=== PATIENT | female | born 1955 | race Caucasian/White ===

== ENCOUNTER → 2020-08-23 11:22 | Outpatient (CLI) | payer OTHER, MEDICAID, SELFPAY ==
[2020-08-23 13:47] LABS: COVID19 -Nasal RAPID Negative (Negative)
== END ==
PROVIDERS: PCP Nurse Practitioner; Visit Provider Student in an Organized Health Care Education/Training Program
DX: Z01.812 Encounter for preprocedural laboratory examination (principal); Z20.822 Contact with and (suspected) exposure to COVID-19
CPT/HCPCS: 87635; C9803

== ENCOUNTER 2020-08-25 14:39 | Observation (INO) | payer OTHER, MEDICAID, SELFPAY ==
[2020-07-27 12:42] VITALS: BMI 36.6
[2020-08-24] VITALS (18 sets, daily range): BP systolic 94–142; BP diastolic 48–86; PULSE 56–87; RESP 12–22; TEMP 36.3–37.2; O2SAT 94–99; BMI 36.6
--- NOTE | 2020-08-24 06:30 | DI.RAD.S_ITS ---
PROCEDURE: XR HIP W PEL IF DONE RT 2V INDICATIONS: total hip TECHNIQUE: AP pelvis and lateral view of the right hip acquired. COMPARISON: None. FINDINGS: Bones: Patient is status post right hip arthroplasty, with hardware components in expected positions. The hip joint appears congruent. The visualized bony structures appear intact. Soft tissues: Overlying postoperative changes are noted. No suspicious soft tissue densities. IMPRESSION: Expected immediate postoperative appearance, status post total right hip arthroplasty. Dictated by: Roney Dai M.D. on 08/24/2020 at 16:18 Approved by: Roney Dai M.D. on 08/24/2020 at 16:19
[2020-08-24] MEDS: ACETAMINOPHEN 325 MG TABLET 975 MG PO (09:26)
[2020-08-24] MEDS: LACTATED RINGERS 1,000 ML 42 ML IV ×2 (09:27→12:16)
[2020-08-24] MEDS: VANCOMYCIN 1,000 MG/200 ML PIGGYBACK 200 MG IV (09:36)
--- NOTE | 2020-08-24 10:17 | PM.PREOP ---
Pre-operative Note COVID-19 COVID-19 status: Negative Interval Note History & Physical reviewed/Exam performed by Physician: Yes Changes to H&P: No
--- NOTE | 2020-08-24 10:17 | PM.OP.1 ---
Operative Date/Time/Diagnoses Date of procedure: 08/24/20 Time of procedure: 10:59 Pre-op diagnosis: right hip OA Post-op diagnosis: same Procedure & Clinicians Procedure: Right total hip arthroplasty posterior approach Same procedure as scheduled: Yes Indications: The patient has had progressively worsening right hip pain with radiographic changes consistent with arthritis. Non-operative management has failed and the patient has requested total hip replacement. The risks, benefits and alternatives to surgery were discussed with the patient prior to proceeding. Risks discussed included, but were not limited to, failure to relieve pain, leg length discrepancy, dislocation, stiffness, infection, nerve damage, deep venous thrombosis, pulmonary embolism, stroke, coma, heart attack, permanent paralysis and , as well as the potential need for eventual revision of the prosthetic. Surgeon: Cara Biggs Filling Station Laborer: Kiran Perez Anesthesia Type: General and Spinal Operative Notes Findings: Severe right hip osteoarthritis, adequate stability, adequate bone Closure Type: primary Specimen(s): none sent Prosthetic devices, grafts, tissues, transplants, or devices: [employer] anthology standard offset size 7, 56 mm R3 cup, neutral poly liner, one 6.5 mm screw, +0 Oxinium head Applied: drain(s) Estimated Blood Loss (mL): 250 Blood products transfused: none Procedure in detail: The patient was seen in the pre-operative area, where the patient identified the right hip as the operative site and this was marked with my initials. The patient received pre-operative antibiotics and was taken to the operating room and placed on the operative table in the left lateral decubitus position after satisfactory anesthesia. A diesel scoop operator out was performed. The right leg was prepared from the ankle to the iliac crest with ChloroPrep in the usual fashion and draped through sterile drapes. The hip was approached through an approximately 20 cm incision centered over the greater trochanter and curving gently posteriorly as it went proximally. This was carried sharply to the fascia olaf, which was divided and retracted with a self retaining retractor. The trochanteric bursa was excised with care being taken to avoid the sciatic nerve, which was identified and protected throughout the case. The short external rotators were incised and the capsulomuscular flap was raised and tagged for later repair. The hip was dislocated, and a femoral neck osteotomy performed approximately 15 mm above the lesser trochanter. Retractors were placed around the femur. The canal was opened with a box cutting osteotome, followed by a T handled reamer and a lateralizing reamer. The chili pepper broach was then used, followed by sequential broaching until there was good stability of the broach in the femur. Retractors were placed to expose the acetabulum. The labrum and central soft tissues were removed. Reaming was performed initially going up in 2 mm increments, then 1 mm increments until good bite was obtained with an odd sized reamer. The cup 1 mm larger than the last reamer was then inserted using the appropriate anteversion guides. It was further stabilized with a single screw. A trial neutral liner was placed. The broach was placed in the canal. A trial head and neck were then placed and the hip relocated and checked for leg length and stability. An intraoperative film confirmed the component position and no evidence of fracture. The patient was stable in the position of sleep, of squatting, and could be put through a range of motion with 45 degrees internal rotation without dislocation. At 90 degrees flexion, internal rotation to 80 ? was possible before dislocation. This was felt to be satisfactory and the appropriate components were opened, and the trials were removed. The acetabular liner was impacted into position. The final stem was then impacted into the prepared femoral canal. A brief Betadine soak was performed while trialing with head options. The hip was meticulously irrigated with normal saline. Finally the femoral head was impacted onto the stem. The acetabulum was cleared of all material and the hip relocated one final time. The capsulomuscular flap was then repaired to the greater trochanter though an awl hole using the tag sutures. The short external rotators were repaired with a nonabsorbable suture. A deep drain was placed and brought out anteriorly. The fascia olaf was closed with Vicryl. The subcutaneous layer was closed with barbed sutures and SteriStrips. A Cristina dressing was applied and the patient was taken to recovery having tolerated the procedure well. Complications: none Post-operative Condition: stable Disposition: Acute Care Plan for aftercare: The patient will be maintained on a standard total hip replacement protocol with weight bearing as tolerated and posterior hip precautions. The patient will receive Aspirin and sequential compression devices for DVT prophylaxis. The patient will be discharged home when safe for the home environment.
--- NOTE | 2020-08-24 10:45 | DI.RAD.S_ITS ---
PROCEDURE: XR PELVIS 1-2V INDICATIONS: INNER OP RT HIP TECHNIQUE: 1 intraoperative view(s) of the pelvis acquired. COMPARISON: [facility], CR, XR HIP W PEL IF DONE RT 2V, 08/24/2020, 13:36. FINDINGS: Bones: Intraoperative imaging obtained during right hip arthroplasty. Soft tissues: Visualized bowel gas pattern is normal. No suspicious soft tissue calcifications. IMPRESSION: Intraoperative imaging obtained during right hip arthroplasty. Dictated by: Abhinav Frost M.D. on 08/24/2020 at 16:26 Approved by: Abhinav Frost M.D. on 08/24/2020 at 16:26
[2020-08-24] MEDS: CEFAZOLIN 1 GM VIAL 2 GM IV ×2 (10:53→19:44)
--- NOTE | 2020-08-24 11:26 | SUR.OPER ---
Left Lateral on padded OR bed. Gel axillary roll. Arms secured on padded arm board with pillow supporting top arm. Padded hip positioner braces x4 - anterior and posterior chest and pelvis. Additional gel pad used anterior pelvis. Gel pad under bottom leg from knee to foot and secured with tape over sheet.
[2020-08-24] MEDS: SODIUM CHLORIDE IRRIG SOLUTION 250 ML, EPINEPHrine 1 MG IRR (11:32)
[2020-08-24] MEDS: TRANEXAMIC ACID 1,000 MG VIAL 1000 MG INJ ×2 (11:33→12:50)
[2020-08-24] MEDS: SODIUM CHLORIDE IRRIG SOLUTION 250 ML, POVIDONE-IODINE SPONGE STICKS 1 APPLIC IRR (11:35)
[2020-08-24] MEDS: BUPIVACAINE LIPOSOME 266 MG/20 ML VIAL INJ (11:35)
[2020-08-24] MEDS: BUPIVACAINE 0.5% W/ EPI (PF) 30 ML VIAL INJ (11:36)
[2020-08-24] MEDS: ALBUTEROL 2.5 MG/3 ML NEB (ADULT) INH ×3 (13:31→23:32)
[2020-08-24] MEDS: ONDANSETRON 4 MG/2 ML INJ IV ×2 (13:52→14:11)
[2020-08-24] MEDS: HYDROMORPHONE 2 MG INJ IV (14:01)
[2020-08-24] MEDS: fentaNYL 100 MCG/2 ML INJ IV (14:18)
[2020-08-24] MEDS: OXYCODONE IR 5 MG TABLET 10 MG PO ×2 (15:42→19:45)
[2020-08-24] MEDS: ACETAMINOPHEN 325 MG TABLET 650 MG PO ×2 (15:43→20:55)
[2020-08-24] MEDS: IBUPROFEN 400 MG TABLET PO ×2 (17:14→20:56)
[2020-08-24] MEDS: HYDROMORPHONE 2 MG TABLET PO ×2 (17:14→20:57)
[2020-08-24] MEDS: LACTATED RINGERS 1,000 ML 125 ML IV (17:21)
[2020-08-24] MEDS: NICOTINE 21 MG PATCH TOP (17:43)
[2020-08-24] MEDS: BUDESONIDE 0.5 MG/2 ML NEB INH (20:17)
[2020-08-24] MEDS: ASPIRIN EC 81 MG TABLET PO (20:55)
[2020-08-24] MEDS: OXYCODONE IR 10 MG TABLET 20 MG PO (20:55)
[2020-08-24] MEDS: DOCUSATE 100 MG CAPSULE PO (20:56)
[2020-08-24] MEDS: methocarbamoL 500 MG TABLET 750 MG PO (20:56)
[2020-08-24] MEDS: SOLIFENACIN 5 MG TABLET PO (21:19)
[2020-08-25] VITALS (9 sets, daily range): BP systolic 115–138; BP diastolic 65–73; PULSE 70–88; RESP 16–18; TEMP 36.7–37.2; O2SAT 95–97
[2020-08-25] MEDS: HYDROMORPHONE 2 MG TABLET PO ×7 (00:11→20:50)
[2020-08-25] MEDS: IBUPROFEN 400 MG TABLET PO ×6 (01:17→20:59)
--- NOTE | 2020-08-25 02:27 | PC.NURSE ---
patient is alert and oriented. Is very particular about how things are done with frequent requests for variety of things and can be time consuming; needs much reassurance. Breath sounds coarse with expiratory wheezing throughout; RA sat 98%. HRR. Denies nausea. BT present and is passing flatus. was up to C on previous shift; denies dysuria, frequency or urgency. Is able to move self in bed. Reportedly up with walker and 2 assists. Complains of 4/10 right hip pain along with generalized fibromyalgia pains and was medicated with Dilaudid in addition to scheduled Ibuprofen; has ice packs to bilateral hips. JENN dressing is intact and functioning with small area of drainage noted; hemovac is intact and compressed. CMS is intact except for movement; patient is only able to slightly lift right leg off bed. Is wearing bilateral calf SCD's. Fall risk score is high and bed alarm is activated.
[2020-08-25] MEDS: LACTATED RINGERS 1,000 ML 125 ML IV (02:40)
[2020-08-25] MEDS: CEFAZOLIN 1 GM VIAL 2 GM IV (02:41)
[2020-08-25 05:34] LABS: Hematocrit 31.9 % (36-46); Hemoglobin 10.6 g/dL (12.0-16.0)
[2020-08-25] MEDS: PANTOPRAZOLE DR 40 MG TABLET PO (06:17)
[2020-08-25] MEDS: DOCUSATE 100 MG CAPSULE PO ×2 (09:22→20:59)
[2020-08-25] MEDS: FLUoxetine 20 MG CAPSULE 80 MG PO (09:22)
[2020-08-25] MEDS: NICOTINE 21 MG PATCH TOP (09:22)
[2020-08-25] MEDS: LOSARTAN 50 MG TABLET 100 MG PO (09:23)
[2020-08-25] MEDS: AMLODIPINE 5 MG TABLET 10 MG PO (09:23)
[2020-08-25] MEDS: ASPIRIN EC 81 MG TABLET PO ×2 (09:23→20:57)
[2020-08-25] MEDS: ACETAMINOPHEN 325 MG TABLET 650 MG PO ×3 (09:24→20:57)
--- NOTE | 2020-08-25 09:56 | PT.IIE ---
Current Diagnoses Unilateral primary osteoarthritis, right hip (08/24/20) Surgery Performed Operation Date: 08/24/20 10:45 Actual Procedures p Total Hip Arthroplasty(Right) - Cara Biggs MD Surgical History (Last Reviewed 08/25/20 @ 11:30 by Kiran Perez PA-C) History of arthroscopy of knee History of carpal tunnel surgery History of elective History of knee replacement History of surgical removal of ganglion cyst Hx of cholecystectomy S/P Botox injection (~04/2020) Medical History (Last Reviewed 08/25/20 @ 11:30 by Kiran Perez PA-C) ADHD Anemia Arthritis Asthma Current every day smoker Depression Diverticulitis Diverticulosis DJD (degenerative joint disease) Fibromyalgia Fragile skin Headache, migraine HTN (hypertension) IBS (irritable bowel syndrome) WILLOW (obstructive sleep apnea) Psoriasis PTSD (post-traumatic stress disorder) Physical Therapy Inpatient Evaluation/Re-Eval M1 PT/OT-IP Prior Functional Status Start: 08/25/20 12:38 Freq: NEEDED Status: Active Protocol: Document 08/25/20 09:56 AB (Rec: 08/25/20 12:54 AB [email or web address]) Medical Review Prior Functional Status Medical History Reviewed Yes Communication able to make needs known Mobility and Gait pt stated that she is modified independent with all mobilities and ambulation without AD indoors but occasionally uses a SPC indoors but uses SPC at all times for outdoor mobility Social History Household Members none Living Arrangements House Number of Floors (Floors) Two Floors Number of Stairs To Enter/Railing? pt plans to stay at her daughter's house: home set up info is regarding pt's daughter's house pt will stay on main level of the house and does not have a shower has 7 steps B side rails to enter and can only hold on to one rail at a time 20 steps to get to bathroom level bilateral wide rails (pt stated that she will not go upstairs) Home Environment Standard Height Toilet Home Equipment Front Wheel Walker,Straight Cane,Raised Toilet Seat w/ Armrests,Lift Recliner Additional Social History Comment has an adjustable bed M2 PT-IP Current Condition Start: 08/25/20 12:38 Freq: NEEDED Status: Active Protocol: Document 08/25/20 09:56 AB (Rec: 08/25/20 12:54 AB [email or web address]) Physical Therapy Current Condition Current Condition Evaluation Date 08/25/20 Treatment Diagnosis s/p R DREW posterior approach; difficulty in walking Onset Date 08/24/20 Precautions Posterior Hip Precautions No Hip Flexion > 90 degrees,No Hip Internal Rotation,No Hip Adduction Weight Bearing Status Weight Bearing Status Weight Bear as Tolerated Allowed Weight Bearing Amount (enter % RLE WBAT or #) (%) M3 PT-IP Subjective Start: 08/25/20 12:38 Freq: NEEDED Status: Active Protocol: Document 08/25/20 09:56 AB (Rec: 08/25/20 12:54 AB [email or web address]) Subjective Physical Therapy Visit Type Type Initial Evaluation Visit Start Time 09:56 Visit Stop Time 11:15 Total Visit Minutes 79 Number of INGOT STRIPPER Visits 0 Physical Therapy Visit Comments Patient Comments agreeable to do PT Therapy Pain Assessment Pain When Pain Assessed At Rest Pain Present Pain Present Pain Reported Location Right Hip Intensity 7 Scale Used Numeric (0 - 10) Pain Management Techniques Apply Cold,Distraction, Modification of Treatment,Re- positioning,Timing of Activity with Medications M4 PT-IP Mobility and Gait Start: 08/25/20 12:38 Freq: NEEDED Status: Active Protocol: Document 08/25/20 09:56 AB (Rec: 08/25/20 12:54 [email or web address]) PT-Bed Mobility Assessment Supine to Sit Supine to Sit Maximum Assistance,Bedrails Sit to Supine Sit to Supine Moderate Assistance,Maximum Assistance,1 Person Assistance PT-Transfer Assessment Sit to and From Stand Sit to and from Stand Maximum Assistance,1 Person Assistance,Use of Upper Extremities Equipment Transfer Assistive Device Front Wheeled Walker Orthotic/Prosthetic Devices or Brace: No Transfers Transfer Destination Bed,Chair Transfer Technique Stand Step Pivot Transfer Ability Level of Assist Moderate Assistance,Maximum Assistance,1 Person Assistance ,Use of Upper Extremities Comments Mobility Comments educated pt on posterior hip precautions but pt tends to get confuse and requires cues with all tasks. pt sitting on chair. and completed sit to stand max A and cues. ambulated in room using FWW mod A ~ 15 ft and instructed to go to bed. required max A for controlled descent on bed. completed sit to supine mod to max A with RLE elevation. pt tends to hook LLE to assist RLE and pt cued for hip precautions. Pt stated that she knows her hip precautions but then after a few seconds stated that she does not know what she is doing due to her fibromyalgia making her confuse. pt completed supine to sit max A and cues. completed sit to stand max A from EOB and step transfer back to chair using FWW max A. informed pt regarding level of assistance, caregiver training needs and recommendations. pt agreed to go to SNF rehab. talked to pt's daughter and agreed to do caregiver training if appropriate but daughter has 2 kids that she has to take care of as well. pt positioned on chair but requested to go back to bed. completed sit to stand from chair max A and transferred to bed max A using FWW. completed sit to supine mod to max A and cues. positioned in bed. call light and table placed within reach. talked to case briefer regarding SNF recommendation. Gait Assessment Gait Gait Assistance Required: Moderate Assistance Distance (Feet) 15 Able to Maintain Weight Bearing Status Yes During Gait Assistive Devices Assistive Device Gait Belt,Front Wheeled Walker Orthotic/Prosthetic Devices or Brace: No Gait Deviations General Gait Pattern Antalgic,Decreased Stride Length,Decreased Feet Clearance,Step-to Gait Factors Limiting Gait Function Factors Limiting Gait Function Decreased Activity Tolerance, Decreased Strength,Pain,Poor Balance,Poor Safety Awareness Comments Gait Comments pt tends to drag RLE during ambulation and required cues to increase elevation. PT-Balance Assessment Sitting Balance and Reactions Static Sitting Balance Ability Good Dynamic Sitting Balance Ability Good Standing Balance and Reactions Static Standing Balance Ability Poor Dynamic Standing Balance Ability Poor Device Used FWW M5 PT-IP Objective Assessments Start: 08/25/20 12:38 Freq: NEEDED Status: Active Protocol: Document 08/25/20 09:56 AB (Rec: 08/25/20 12:54 AB [email or web address]) Orientation Orientation/Cognition Level of Alertness Confusional State Orientation Name,Place,Situation Language Function Ability No Deficits Noted Safety Awareness Decreased Safety Awareness Memory Description Short Term Impaired Strength Lower Extremity Strength Assessment Right Impaired Hip 3-/5 Knee 3+/5 Muscle Tone Muscle Tone WNL Yes M6 PT-IP Treatment Start: 08/25/20 12:38 Freq: NEEDED Status: Active Protocol: Document 08/25/20 09:56 AB (Rec: 08/25/20 12:54 AB [email or web address]) Physical Therapy Treatment Education Education Provided Precautions,Weight Bearing Status,Post-Op Packet,Safety M7 PT-IP Assessment and Plan Start: 08/25/20 12:38 Freq: NEEDED Status: Active Protocol: Document 08/25/20 09:56 AB (Rec: 08/25/20 12:54 AB [id number]) PT Summary Assessment and Plan Potential Rehabilitation Potential Good Status of Condition at Evaluation Evolving Summary Impairments Pain,ROM,Strength,Balance, Coordination,Sensation,Tone, Cognition,Bed Mobility, Transfers,Gait,Activity Tolerance Assessment Summary pt requiring max A with mobility using FWW and will require SNF rehab to improve strength and function. will continue to work towards goal to improve independence. Goals Bed Mobility Goal Standby Assistance Transfer Goal Standby Assistance,Front Wheeled Walker Gait Goal Standby Assistance,Front Wheel Walker Gait Distance 50 Other Goals improve ambulation using FWW 100 ft SBA up/down 7 steps 1 rail SBA Days to Meet Goals 10 Frequency of Treatment Frequency Of Treatment Twice a Day Treatment Plan Physical Therapy Treatment Plan Bed Mobility Training,Transfer Training,Gait Training, Therapeutic Exercise,Balance Retraining,Post Op Education, Discharge Planning,Hot or Cold Pack,Neuromuscular Re-ed, Coordination Retraining,Manual Therapy Precautions Posterior Hip Precautions No Hip Flexion > 90 degrees,No Hip Internal Rotation,No Hip Adduction Recommendations To Nursing Amount of Assist Needed 1 Person Assist Discharge Recommendations PT Discharge Recommendations SNF Rehab Transportation Needs at Discharge Wheelchair/Cabulance
--- NOTE | 2020-08-25 11:29 | PM.PNPO.1 ---
Subjective Subjective Date Patient Seen: 08/25/20 Time Patient Seen: 11:29 Interval history: Patient's pain is [id number]. Denies fever or chills. No nausea or vomiting. Patient is planning on living with her daughter for few days. Her daughter does have several steps into her home. Her daughter also has 2 small children to care for as well. Exam Vital Signs (past 8 hours): - 08/25/20 09:23 08/25/20 10:06 Temperature 98.2 F Pulse Rate 73 72 Respiratory Rate 18 Blood Pressure 138/73 138/73 Pulse Oximetry 96 Oxygen Delivery Method Room Air Oxygen Flow Rate 0 Narrative Exam Narrative: 65-year-old female resting comfortably in bed in no apparent distress. Right hip dressing is clean, dry and intact. Motor functions intact distal right lower extremity. Sensation grossly intact to light touch. Objective Labs Result Diagrams: 08/25/20 05:16 Labs: Laboratory Results - last 24 hr 08/25/20 05:16 Hgb 10.6 L Hct 31.9 L PFSH Medical History ADHD Anemia Arthritis Asthma Current every day smoker Depression Diverticulitis Diverticulosis DJD (degenerative joint disease) Fibromyalgia Fragile skin Headache, migraine HTN (hypertension) IBS (irritable bowel syndrome) WILLOW (obstructive sleep apnea) Psoriasis PTSD (post-traumatic stress disorder) Surgical History History of arthroscopy of knee History of carpal tunnel surgery History of elective History of knee replacement History of surgical removal of ganglion cyst Hx of cholecystectomy S/P Botox injection (~04/2020) Social History household members: none Smoking Status: Current every day smoker alcohol intake: former Assessment & Plan Post-op Postoperative Procedures: Procedures Operation Date: 08/24/20 10:45 Actual Procedures Side Surgeon p Total Hip Arthroplasty Right Cara Biggs MD Postop day 1 status post right total hip arthroplasty. Mobilize with physical therapy. Patient yet to receive physical therapy this morning. So far slow to mobilize. Possible discharge to snf facility versus home with daughter.
[2020-08-25] MEDS: ALBUTEROL 2.5 MG/3 ML NEB (ADULT) INH ×3 (12:41→19:20)
--- NOTE | 2020-08-25 14:43 | PT.IPTN ---
Current Diagnoses Unilateral primary osteoarthritis, right hip (08/25/20) Surgery Performed Operation Date: 08/24/20 10:45 Actual Procedures p Total Hip Arthroplasty(Right) - Cara Biggs MD Physical Therapy Treatment Note M2 PT-IP Current Condition Start: 08/25/20 12:38 Freq: NEEDED Status: Active Protocol: Document 08/25/20 09:56 AB (Rec: 08/25/20 12:54 AB [id number]) Physical Therapy Current Condition Current Condition Evaluation Date 08/25/20 Treatment Diagnosis s/p R DREW posterior approach; difficulty in walking Onset Date 08/24/20 Precautions Posterior Hip Precautions No Hip Flexion > 90 degrees,No Hip Internal Rotation,No Hip Adduction Weight Bearing Status Weight Bearing Status Weight Bear as Tolerated Allowed Weight Bearing Amount (enter % RLE WBAT or #) (%) M3 PT-IP Subjective Start: 08/25/20 12:38 Freq: NEEDED Status: Active Protocol: Document 08/25/20 14:00 SP (Rec: 08/25/20 17:34 SP [id number]) Subjective Physical Therapy Visit Type Type Treatment Note Visit Start Time 14:00 Visit Stop Time 14:43 Total Visit Minutes 43 Number of FOOTWEAR STITCHER Visits 1 Physical Therapy Visit Comments Patient Comments Pt agreeable to working with therapy. Patient Goals welcoming go to SNF get stronger before return home. Therapy Pain Assessment Pain When Pain Assessed At Rest Pain Present Pain Present Pain Reported Location Right Hip Intensity 7 Scale Used Numeric (0 - 10) Description Aching,Spasm,Tender,With Movement Pain Behaviors Facial Grimacing Pain Management Techniques Apply Cold,Distraction, Modification of Treatment,Re- positioning,Timing of Activity with Medications M4 PT-IP Mobility and Gait Start: 08/25/20 12:38 Freq: NEEDED Status: Active Protocol: Document 08/25/20 14:00 SP (Rec: 08/25/20 17:34 SP [id number]) PT-Bed Mobility Assessment Supine to Sit Supine to Sit Minimal Assistance,1 Person Assistance,Bedrails Sit to Supine Sit to Supine Minimal Assistance,1 Person Assistance,Bedrails Scooting Scooting to Edge of Bed Moderate Assistance Scooting Up and Down in Bed Minimal Assistance PT-Transfer Assessment Sit to and From Stand Sit to and from Stand Moderate Assistance,1 Person Assistance,Use of Upper Extremities Equipment Transfer Assistive Device Gait Belt,Front Wheeled Walker Orthotic/Prosthetic Devices or Brace: No Transfers Transfer Destination Bed,Toilet Transfer Technique Stand Step Pivot Transfer Ability Level of Assist Minimal Assistance,1 Person Assistance,Use of Upper Extremities Comments Mobility Comments Pt recalled 3/3 precautions, increased pain R hip this tx. Instructed post op ex and referred to packet. Completed supine>sit Min A for RLE repositioning, Scoot to EOB Mod A for RLE support and pelvis scoot usign transfer pad. Sit EOB SBA. Sit>stand Mod A x1 using FWW, cued push from bed. Instrucuted wt shift once in standing pre gait CGA using FWW. Pt ambulated to bathroom step to gait using FWW CGA, cued for R knee flexion to assist LE foot clearance, improve with distance to toilet. SPT front toilet with cuing for maintain no IR during turn and back up fully with FWW. Pt slow descent onto toilet using grab bar after cue for support Min A with good RLE positioned in front. SBA seated on toilet leaned to L to off weight R hip, cued safety of balance use of grab bar support, stable. Sit>stand Min A x1 from toilet, self pericare. Pt ambulated to sink cGA using fWW, stance at sink CGA, stable UE contact sink for support then ambulated back to bed, Min A slow descent onto bed. Min A for RLE support into bed then able to scoot up in bed self with bed rail and LLE. Pt had pillows between LEs, call light , cold pack at hip and all needs inreach with bed alarmed for safety before left . Gait Assessment Gait Gait Assistance Required: Contact Guard Assist,1 Person Assist Distance (Feet) 10 Able to Maintain Weight Bearing Status Yes During Gait Assistive Devices Assistive Device Gait Belt,Front Wheeled Walker Orthotic/Prosthetic Devices or Brace: No Gait Deviations General Gait Pattern Antalgic,Decreased Stride Length,Decreased Feet Clearance,Step-to Gait Factors Limiting Gait Function Factors Limiting Gait Function Decreased Activity Tolerance, Decreased Strength,Pain,Poor Balance,Poor Safety Awareness Comments Gait Comments Pt able to increase WB into RLE and knee flexion with cuing using fWW CGA. PT-Balance Assessment Sitting Balance and Reactions Static Sitting Balance Ability Good Dynamic Sitting Balance Ability Good Standing Balance and Reactions Static Standing Balance Ability Fair Dynamic Standing Balance Ability Fair Device Used FWW M5 PT-IP Objective Assessments Start: 08/25/20 12:38 Freq: NEEDED Status: Active Protocol: Document 08/25/20 09:56 AB (Rec: 08/25/20 12:54 AB [id number]) Orientation Orientation/Cognition Level of Alertness Confusional State Orientation Name,Place,Situation Language Function Ability No Deficits Noted Safety Awareness Decreased Safety Awareness Memory Description Short Term Impaired Strength Lower Extremity Strength Assessment Right Impaired Hip 3-/5 Knee 3+/5 Muscle Tone Muscle Tone WNL Yes M6 PT-IP Treatment Start: 08/25/20 12:38 Freq: NEEDED Status: Active Protocol: Document 08/25/20 14:00 SP (Rec: 08/25/20 17:34 SP [id number]) Physical Therapy Treatment Exercises Exercises Ankle Pumps,Gluteal Sets,Quad Sets,Supine Hip Abduction Knee ROM Measurement 70 deg Education Education Provided Precautions,Weight Bearing Status,Post-Op Packet,Safety M7 PT-IP Assessment and Plan Start: 08/25/20 12:38 Freq: NEEDED Status: Active Protocol: Document 08/25/20 14:00 SP (Rec: 08/25/20 17:34 SP [id number]) PT Summary Assessment and Plan Potential Rehabilitation Potential Good Status of Condition at Evaluation Evolving Summary Impairments Pain,ROM,Strength,Balance, Coordination,Sensation,Tone, Cognition,Bed Mobility, Transfers,Gait,Activity Tolerance Progress Towards Goals Progressing Toward Goals,Slow Progress due to Pain,Slow Progress due to Activity Tolerance Assessment Summary Pt requires Min- Mod A during mobility using fWW. Pt will require SNF rehab to improve strength and function. will continue to work towards goal to improve independence. Pt and daughter stated can come in for caregiver training if improves alot in am but both agreement that SNF would be best. Goals Bed Mobility Goal Standby Assistance Transfer Goal Standby Assistance,Front Wheeled Walker Gait Goal Standby Assistance,Front Wheel Walker Gait Distance 50 Other Goals improve ambulation using FWW 100 ft SBA up/down 7 steps 1 rail SBA Days to Meet Goals 10 Frequency of Treatment Frequency Of Treatment Twice a Day Treatment Plan Physical Therapy Treatment Plan Bed Mobility Training,Transfer Training,Gait Training, Therapeutic Exercise,Balance Retraining,Post Op Education, Discharge Planning,Hot or Cold Pack,Neuromuscular Re-ed, Coordination Retraining,Manual Therapy Other Recommendations and Next Treatment bed mobility, transfers, LE ex Focus , gait further distance. Precautions Posterior Hip Precautions No Hip Flexion > 90 degrees,No Hip Internal Rotation,No Hip Adduction Recommendations To Nursing Amount of Assist Needed 1 Person Assist Discharge Recommendations PT Discharge Recommendations SNF Rehab Transportation Needs at Discharge Wheelchair/Cabulance
--- NOTE | 2020-08-25 16:13 | CM.IDA ---
Initial DCP Assessment Note Pt is a 65 yo female, resident of [place], now POD#1 from Rt hip surgery w/ Dr Biggs PCP: Sis Hawk Payer: [employer] Reviewed chart, met w/patient to introduce role. Patient had just worked w/ Mindy, PT who is currently recommending SNF. Patient had planned to DC to her dtr's home, she admits today that she thought I would be doing better and feel stronger than I do today Patient does not want to DC to her dtr's care requiring this much (assist) because dtr has a 6 and 3 yo. Placed call to Monica at [facility], per patient's request, and discussed referral. Auth has been started through patient's [employer], result of this auth request now pending. DC is expected tomorrow 6.3.21, either home to dtr's w/ HH vs SNF...[facility] In addition- requested patient's COVID-19 vaccination card (patient states she is fully vaccinated) and she does not have it today at , patient plans to ask dtr to look so that SNF can have a copy. Following closely for coordination of safe DCP ASHWIN Hanson
[2020-08-25] MEDS: BUDESONIDE 0.5 MG/2 ML NEB INH (20:20)
[2020-08-25] MEDS: methocarbamoL 500 MG TABLET 750 MG PO (20:49)
[2020-08-25] MEDS: SOLIFENACIN 5 MG TABLET PO (20:57)
[2020-08-26] MEDS: IBUPROFEN 400 MG TABLET PO ×4 (01:11→12:28)
[2020-08-26] MEDS: HYDROMORPHONE 2 MG TABLET PO ×4 (01:12→12:28)
[2020-08-26 01:15] VITALS: BP 133/66; PULSE 82; RESP 20; TEMP 37.1; O2SAT 92
[2020-08-26 05:10] VITALS: BP 142/71; PULSE 73; RESP 20; TEMP 36.7; O2SAT 94
[2020-08-26] MEDS: PANTOPRAZOLE DR 40 MG TABLET PO (06:13)
--- NOTE | 2020-08-26 07:54 | PM.PNPO.1 ---
Subjective Subjective Date Patient Seen: 08/26/20 Time Patient Seen: 07:54 Interval history: Patient states she is doing well overall and is in mild discomfort at rest. Patient reports her pain level as a 3/10 in intensity. At this time the patient denies fever, chills, nausea, chest pain, shortness of breath, or urinary retention. Patient reports good sensation throughout the bilateral lower extremities. She notes that work with physical therapy so far has gone well. Exam Vital Signs (past 8 hours): - 08/26/20 01:15 08/26/20 05:10 Temperature 98.7 F 98.1 F Pulse Rate 82 73 Respiratory Rate 20 20 Blood Pressure 133/66 142/71 H Pulse Oximetry 92 94 Oxygen Delivery Method Room Air Oxygen Flow Rate 0 Narrative Exam Narrative: 65-year-old female postop day 2 status post right total hip arthroplasty. Patient is resting comfortably in bed, is in no acute distress, is alert and oriented x3. Skin is warm and dry, and the skin surrounding the incision site is free of erythema, warmth, induration, or discharge. Dressing over the incision site is clean, dry, and intact. Good sensation appreciated throughout the bilateral lower extremities to light touch. Hip flexion performed bilaterally without difficulty or discomfort, left greater than right. Ankle dorsiflexion, plantar flexion, eversion, inversion performed bilaterally without difficulty or discomfort. Calves are soft and nontender, negative Homans sign. DP pulses palpated bilaterally. No other signs of DVT appreciated. Const General: cooperative, healthy appearing and comfortable Resp Effort & Inspection: normal respiratory effort and able to speak in complete sentences Skin General: no rashes or lesions noted Objective Labs Result Diagrams: 08/25/20 05:16 [facility] Medical History ADHD Anemia Arthritis Asthma Current every day smoker Depression Diverticulitis Diverticulosis DJD (degenerative joint disease) Fibromyalgia Fragile skin Headache, migraine HTN (hypertension) IBS (irritable bowel syndrome) WILLOW (obstructive sleep apnea) Psoriasis PTSD (post-traumatic stress disorder) Surgical History History of arthroscopy of knee History of carpal tunnel surgery History of elective History of knee replacement History of surgical removal of ganglion cyst Hx of cholecystectomy S/P Botox injection (~04/2020) Social History household members: none Smoking Status: Current every day smoker alcohol intake: former Assessment & Plan Post-op Postoperative Procedures: Procedures Operation Date: 08/24/20 10:45 Actual Procedures Side Surgeon p Total Hip Arthroplasty Right Cara Biggs MD Postoperative day: 2 Postoperative status: doing well Postoperative plan: ambulate Postoperative plan narrative: Patient is to continue working on ambulation with the assistance of a front wheeled walker with physical therapy. Patient is also due to continue working on stair [place]. Current pain management regimen is to be continued as it is adequately controlled the patient's pain level at this time. Aspirin 81 mg twice daily is to be continued for 6 weeks.
[2020-08-26 08:00] VITALS: BP 134/69; PULSE 78; RESP 18; TEMP 36.8; O2SAT 97
--- NOTE | 2020-08-26 09:12 | P.PN_ITS ---
Subjective Subjective Date Patient Seen: 08/26/20 Time Patient Seen: 09:12 Exam Vital Signs (past 8 hours): - 08/26/20 01:15 08/26/20 05:10 Temperature 98.7 F 98.1 F Pulse Rate 82 73 Respiratory Rate 20 20 Blood Pressure 133/66 142/71 H Pulse Oximetry 92 94 Oxygen Delivery Method Room Air Oxygen Flow Rate 0 Objective Labs Result Diagrams: 08/25/20 05:16 [facility] Medical History ADHD Anemia Arthritis Asthma Current every day smoker Depression Diverticulitis Diverticulosis DJD (degenerative joint disease) Fibromyalgia Fragile skin Headache, migraine HTN (hypertension) IBS (irritable bowel syndrome) WILLOW (obstructive sleep apnea) Psoriasis PTSD (post-traumatic stress disorder) Surgical History History of arthroscopy of knee History of carpal tunnel surgery History of elective History of knee replacement History of surgical removal of ganglion cyst Hx of cholecystectomy S/P Botox injection (~04/2020) Social History household members: none Smoking Status: Current every day smoker alcohol intake: former Assessment & Plan Post-op Postoperative Procedures: Procedures Operation Date: 08/24/20 10:45 Actual Procedures Side Surgeon p Total Hip Arthroplasty Right Cara Biggs MD
--- NOTE | 2020-08-26 09:13 | PM.DS.1 ---
History of Present Illness History of Present Illness Date Patient Seen: 08/26/20 Time Patient Seen: 09:13 Chief complaint: Right Total Hip Arthroplasty *OPB* Narrative: The patient has had progressively worsening right hip pain with radiographic changes consistent with arthritis. Non-operative management has failed and the patient has requested total hip replacement. The risks, benefits and alternatives to surgery were discussed with the patient prior to proceeding. Risks discussed included, but were not limited to, failure to relieve pain, leg length discrepancy, dislocation, stiffness, infection, nerve damage, deep venous thrombosis, pulmonary embolism, stroke, coma, heart attack, permanent paralysis and , as well as the potential need for eventual revision of the prosthetic. Discharge Providers Provider Date of admission: 08/25/20 14:39 Discharge Date: 08/26/20 Primary care physician: JEREMÍAS Patricia Consults: 08/24/20 06:30 Consult to Anesthesiology Routine Comment: Consulting Provider: Anesthesiologist Reason for consultation: Regional block for post operative pain control Consult to Anesthesiology Routine Comment: Consulting Provider: Anesthesiologist Reason for consultation: Regional block for post operative pain control 08/24/20 09:44 Consult to Respiratory Therapy Evaluate & Treat Comment: Physician Instructions: Evaluate and treat 08/24/20 14:50 Consult to Discharge Planning Routine Comment: Consult to Physical Therapy Evaluate & Treat Comment: Physician Instructions: post op DREW protocol Consult to Respiratory Therapy Evaluate & Treat Comment: Physician Instructions: Evaluate and treat Discharge provider: Royce Mansfield PA-C Summary Hospital Course Discharge Diagnosis: Right hip osteoarthritis Status post right posterior total hip arthroplasty Hospital Course: Patient was admitted to the hospital following the above-listed procedure for the above-listed diagnosis. Following the procedure the patient has been convalescing appropriately in her pain has been managed with current pain management regimen. Throughout the course of her stay in the hospital the patient has denied fever, chills, nausea, chest pain, shortness of breath, or urinary retention. Aspirin 81 mg twice daily has been taken for DVT prophylaxis along with the assistance of sequential compression devices. Patient is successfully worked on ambulation and stair [place] with physical therapy. Dressing over the incision site has remained intact. Standard total hip replacement protocol with posterior hip precautions. Status at Discharge Cognitive/behavioral status at discharge: oriented Functional status at discharge: uses cane/walker Overall status at discharge: patient is progressing back to baseline Exam Vital Signs (past 8 hours): - 08/26/20 01:15 08/26/20 05:10 Temperature 98.7 F 98.1 F Pulse Rate 82 73 Respiratory Rate 20 20 Blood Pressure 133/66 142/71 H Pulse Oximetry 92 94 Oxygen Delivery Method Room Air Oxygen Flow Rate 0 Narrative Exam Narrative: 65-year-old female postop day 2 status post right total hip arthroplasty. Patient is resting comfortably in bed, is in no acute distress, is alert and oriented x3. Skin is warm and dry, and the skin surrounding the incision site is free of erythema, warmth, induration, or discharge. Dressing over the incision site is clean, dry, and intact. Good sensation appreciated throughout the bilateral lower extremities to light touch. Hip flexion performed bilaterally without difficulty or discomfort, left greater than right. Ankle dorsiflexion, plantar flexion, eversion, inversion performed bilaterally without difficulty or discomfort. Calves are soft and nontender, negative Homans sign. DP pulses palpated bilaterally. No other signs of DVT appreciated. Const General: cooperative, healthy appearing and comfortable Resp Effort & Inspection: normal respiratory effort and able to speak in complete sentences Skin General: no rashes or lesions noted Objective Labs Result Diagrams: 08/25/20 05:16 [facility] Medical History ADHD Anemia Arthritis Asthma Current every day smoker Depression Diverticulitis Diverticulosis DJD (degenerative joint disease) Fibromyalgia Fragile skin Headache, migraine HTN (hypertension) IBS (irritable bowel syndrome) WILLOW (obstructive sleep apnea) Psoriasis PTSD (post-traumatic stress disorder) Surgical History History of arthroscopy of knee History of carpal tunnel surgery History of elective History of knee replacement History of surgical removal of ganglion cyst Hx of cholecystectomy S/P Botox injection (~04/2020) Social History household members: none Smoking Status: Current every day smoker alcohol intake: former Discharge Assessment & Plan Assessment and Plan Assessment: Patient is doing well. Condition has improved significantly since surgery. Slower to progress than anticipated. Plan of Treatment: Patient is to continue outpatient physical therapy following discharge from the hospital. First postoperative visit in clinic is scheduled for 2 weeks following discharge. Current pain management regimen is to be continued. Aspirin 81 mg twice daily is to be continued for 6 weeks for DVT prophylaxis. Dressing over the incision site is to remain clean, dry, and intact. Contact clinic if the dressing becomes damaged or soiled. Patient is to remain weight-bearing as tolerated with the assistance of a front wheeled walker. Patient is to remain in standard total hip replacement protocol with posterior hip precautions. Contact clinic with any concerns or questions. Any signs of increased redness, swelling, warmth, pain, or discharge from around the incision site should be reported to the clinic. Discharge Plan Discharge Plan Patient Disposition: SNF Transfer to: [facility] Provider Discharge Comment: Patient cleared for transfer pending PT clearance and [place] [facility] facility placement. I certify the postop hospital [facility] care is medically necessary on a continuing basis for any conditions for which he/ she received care during this hospitalization.: Yes The receiving facility has agreed to accept transfer and provide medical treatment.: Yes Discharge orders & Medications Prescriptions: New acetaminophen 325 mg Tablet 650 mg PO TID Qty: 90 RF: 0 aspirin 81 mg Tablet,Delayed Release (Dr/Ec) 81 mg PO BID Qty: 90 RF: 0 ibuprofen 400 mg Tablet 400 mg PO Q4HR Qty: 90 RF: 0 Continued fluoxetine 40 mg Capsule 80 mg PO QAM RF: 0 omeprazole 40 mg Capsule,Delayed Release(Dr/Ec) 40 mg PO DAILY RF: 0 acetaminophen 500 mg Tablet 500 mg PO DAILY PRN (Reason: Pain) RF: 0 methocarbamol 750 mg Tablet 750 mg PO BEDTIME RF: 0 amlodipine 10 mg Tablet 10 mg PO DAILY RF: 0 ibuprofen 200 mg Tablet 400 mg PO DAILY PRN (Reason: Pain) RF: 0 albuterol sulfate 90 mcg/actuation Hfa Aerosol Inhaler 2 puff INHALATION Q4-6H PRN (Reason: Asthma) RF: 0 ondansetron 4 mg Tablet,Disintegrating 4 mg PO Q6H PRN (Reason: Nausea) RF: 0 losartan 100 mg Tablet 100 mg PO DAILY RF: 0 budesonide-formoterol [Symbicort] 160-4.5 mcg/actuation Hfa Aerosol Inhaler 2 puff INHALATION BID RF: 0 solifenacin [Vesicare] 5 mg Tablet 5 mg PO DAILY RF: 0 oxycodone 10 mg Tablet 20 mg PO BID PRN (Reason: Pain) Qty: 42 RF: 0 Follow up/Referrals: Sis Hawk ARNP [Primary Care Provider] - Diet/Activity/Treatments Diet: Regular Activity: Weight-bearing as tolerated with the assistance of a front wheeled walker. Standard total hip replacement protocol with posterior hip precautions. Skin/Wound/Dressing Care Report to your healthcare provider any signs of infection, such as:: chills, fever, night sweats, increased pain, unusual drainage and unusual redness Dressing: Dressing over the incision site is to remain intact. Contact clinic if the dressing becomes damaged or soiled. Other wound treatment: Avoid placing topical ointments over the incision site. Avoid soaking the incision site. Special Rehabilitation Services Reason for rehabilitation: Post-operative therapy Rehab type: Physical therapy and Occupational therapy Visit Report/Discharge Packet Instructions: DI for Hip Replacement, DI for Prescription Opioid Use Stand Alone Forms: Surgery Discharge Discharge Data Primary Care Provider: Sis Hawk Attending Provider: Cara Biggs
[2020-08-26] MEDS: AMLODIPINE 5 MG TABLET 10 MG PO (09:18)
[2020-08-26] MEDS: ACETAMINOPHEN 325 MG TABLET 650 MG PO (09:18)
[2020-08-26] MEDS: ASPIRIN EC 81 MG TABLET PO (09:18)
[2020-08-26] MEDS: NICOTINE 21 MG PATCH TOP (09:19)
[2020-08-26] MEDS: LOSARTAN 50 MG TABLET 100 MG PO (09:19)
[2020-08-26] MEDS: FLUoxetine 20 MG CAPSULE 80 MG PO (09:19)
[2020-08-26] MEDS: DOCUSATE 100 MG CAPSULE PO (09:19)
[2020-08-26] MEDS: ALBUTEROL 2.5 MG/3 ML NEB (ADULT) INH (09:24)
[2020-08-26] MEDS: BUDESONIDE 0.5 MG/2 ML NEB INH (09:24)
[2020-08-26 09:41] VITALS: PULSE 62; RESP 18; O2SAT 98
--- NOTE | 2020-08-26 09:44 | CM.DPNOTE ---
Faxed prescriptions and signed med list to [facility] [place] and received fax confirmation. Mary Ellen Molina CM Asst.
--- NOTE | 2020-08-26 09:47 | CM.DPNOTE ---
Jenae from [facility] called and I told her pt. being dc'd today to [facility]. Mary Ellen Molina CM Asst.
[2020-08-26 09:50] VITALS: PULSE 62; RESP 18
[2020-08-26] MEDS: SOLIFENACIN 5 MG TABLET PO (10:56)
--- NOTE | 2020-08-26 11:08 | PT.IPTN ---
Current Diagnoses Unilateral primary osteoarthritis, right hip (08/25/20) Surgery Performed Operation Date: 08/24/20 10:45 Actual Procedures p Total Hip Arthroplasty(Right) - Cara Biggs MD Physical Therapy Treatment Note M2 PT-IP Current Condition Start: 08/25/20 12:38 Freq: NEEDED Status: Active Protocol: Document 08/25/20 09:56 AB (Rec: 08/25/20 12:54 AB [id number]) Physical Therapy Current Condition Current Condition Evaluation Date 08/25/20 Treatment Diagnosis s/p R DREW posterior approach; difficulty in walking Onset Date 08/24/20 Precautions Posterior Hip Precautions No Hip Flexion > 90 degrees,No Hip Internal Rotation,No Hip Adduction Weight Bearing Status Weight Bearing Status Weight Bear as Tolerated Allowed Weight Bearing Amount (enter % RLE WBAT or #) (%) M3 PT-IP Subjective Start: 08/25/20 12:38 Freq: NEEDED Status: Active Protocol: Document 08/26/20 10:35 CLB (Rec: 08/26/20 12:21 CLB [id number]) Subjective Physical Therapy Visit Type Type Treatment Note Visit Start Time 10:35 Visit Stop Time 11:08 Total Visit Minutes 33 Number of ASSISTANT TO THE CEO Visits 2 Physical Therapy Visit Comments Patient Comments Pt agreeable to working with therapy. Patient Goals welcoming go to SNF get stronger before return home. Therapy Pain Assessment Pain When Pain Assessed At Rest Pain Present Pain Present Pain Reported Location Right Hip Intensity 7 Scale Used Numeric (0 - 10) Pain Management Techniques Apply Cold,Distraction, Modification of Treatment,Re- positioning,Timing of Activity with Medications M4 PT-IP Mobility and Gait Start: 08/25/20 12:38 Freq: NEEDED Status: Active Protocol: Document 08/26/20 10:35 CLB (Rec: 08/26/20 12:21 CLB [id number]) PT-Bed Mobility Assessment Supine to Sit Supine to Sit Standby Assistance,1 Person Assistance,Head of Bed Elevated Sit to Supine Sit to Supine Minimal Assistance,1 Person Assistance,Bedrails Scooting Scooting to Edge of Bed Standby Assistance Scooting Up and Down in Bed Minimal Assistance PT-Transfer Assessment Sit to and From Stand Sit to and from Stand Contact Guard Assistance,1 Person Assistance,Use of Upper Extremities Equipment Transfer Assistive Device Gait Belt,Front Wheeled Walker Orthotic/Prosthetic Devices or Brace: No Transfers Transfer Destination Bed,Toilet Transfer Technique Stand Step Pivot Transfer Ability Level of Assist Standby Assistance,1 Person Assistance,Use of Upper Extremities Comments Mobility Comments Pt recalled 3/3 posterior hip precautions with good carryover during mobility. Pt wanting to get OOB w/o assistance, pt able to get to EOB with increased time for rest breaks. Pt then stood and ambulated to BR, pt able to sit and stand from toilet SBA with heavy use of wall rail, pt able to doff/jeaneth brief and perform pericare. Pt ambulated in room as pt refused ambulation in hallway. Pt returned to bed as pt states chair is uncomfortable. Pt performed ther ex in supine. Pt left in bed with alarm on and all needs within reach, informed RN pt progress . Gait Assessment Gait Gait Assistance Required: Standby Assistance,1 Person Assist Distance (Feet) 40 Able to Maintain Weight Bearing Status Yes During Gait Assistive Devices Assistive Device Gait Belt,Front Wheeled Walker Orthotic/Prosthetic Devices or Brace: No Gait Deviations General Gait Pattern Antalgic,Decreased Stride Length,Decreased Feet Clearance,Step-to Gait Factors Limiting Gait Function Factors Limiting Gait Function Decreased Activity Tolerance, Decreased Strength,Pain,Poor Balance,Poor Safety Awareness M5 PT-IP Objective Assessments Start: 08/25/20 12:38 Freq: NEEDED Status: Active Protocol: Document 08/25/20 09:56 AB (Rec: 08/25/20 12:54 AB [id number]) Orientation Orientation/Cognition Level of Alertness Confusional State Orientation Name,Place,Situation Language Function Ability No Deficits Noted Safety Awareness Decreased Safety Awareness Memory Description Short Term Impaired Strength Lower Extremity Strength Assessment Right Impaired Hip 3-/5 Knee 3+/5 Muscle Tone Muscle Tone WNL Yes M6 PT-IP Treatment Start: 08/25/20 12:38 Freq: NEEDED Status: Active Protocol: Document 08/26/20 10:35 CLB (Rec: 08/26/20 12:21 CLB [id number]) Physical Therapy Treatment Exercises Exercises Ankle Pumps,Gluteal Sets,Quad Sets,Supine Hip Abduction Knee ROM Measurement 70 deg Education Education Provided Precautions,Weight Bearing Status,Post-Op Packet,Safety M7 PT-IP Assessment and Plan Start: 08/25/20 12:38 Freq: NEEDED Status: Active Protocol: Document 08/26/20 10:35 CLB (Rec: 08/26/20 12:21 CLB [id number]) PT Summary Assessment and Plan Potential Rehabilitation Potential Good Status of Condition at Evaluation Evolving Summary Impairments Pain,ROM,Strength,Balance, Coordination,Sensation,Tone, Cognition,Bed Mobility, Transfers,Gait,Activity Tolerance Progress Towards Goals Slow Progress due to Pain Assessment Summary Pt improving with bed mobility and assist during gait. Pt continues to be limited by pain and activity tolerance which decreased pt ability to increase ambulation distance. Pt will require SNF rehab to improve strength and function. will continue to work towards goal to improve independence. Goals Bed Mobility Goal Standby Assistance Transfer Goal Standby Assistance,Front Wheeled Walker Gait Goal Standby Assistance,Front Wheel Walker Gait Distance 50 Other Goals improve ambulation using FWW 100 ft SBA up/down 7 steps 1 rail SBA Days to Meet Goals 10 Frequency of Treatment Frequency Of Treatment Twice a Day Treatment Plan Physical Therapy Treatment Plan Bed Mobility Training,Transfer Training,Gait Training, Therapeutic Exercise,Balance Retraining,Post Op Education, Discharge Planning,Hot or Cold Pack,Neuromuscular Re-ed, Coordination Retraining,Manual Therapy Other Recommendations and Next Treatment bed mobility, transfers, LE ex Focus , gait further distance. Precautions Posterior Hip Precautions No Hip Flexion > 90 degrees,No Hip Internal Rotation,No Hip Adduction Recommendations To Nursing Amount of Assist Needed 1 Person Assist Discharge Recommendations PT Discharge Recommendations SNF Rehab Transportation Needs at Discharge Wheelchair/Cabulance
[2020-08-26 12:01] LABS: COVID19 -Nasal RAPID Negative (Negative)
--- NOTE | 2020-08-26 12:57 | CM.DPNOTE ---
DC Note Received VM from Izzy at [facility] this morning; patient has been authorized for admission at [facility] reference number [id number]. P#[phone] Updated Ortho GUTIERREZ who completed SNF orders. Completed and signed med list, Rx, PASRR and updated COVID-19 test results faxed to Monica at [facility]. Cabulance arranged for [phone] p/u. Updated patient and BOGDAN Fonseca. Patient reminded no smoking policy at SNF. patient has had a nicotine patch on here and Monica / [facility] anticipates patient can get patch replaced once at SNF as well Plan: DC to [facility] via cabulance, insurance has authorized JW
--- NOTE | 2020-08-26 13:17 | CM.DPNOTE ---
Faxed PASRR Covid 19 result to [facility] per Georgette on 08/26/20. Fax confirmation received. Mary Ellen Molina CM Asst.
--- NOTE | 2020-08-26 14:10 | PC.NURSE ---
Addendum entered by Marian Miner R.N. 08/26/20 15:14: Reports called to [facility] in [place]. Patient's IV removed, facility designee here for transport, patient requests privacy while getting dressed. Discharge paperwork given to facility designee. Original Note: Patient A/O x 4, resting in bed with eyes closed. Breathing unlabored. Belongings gathered for D/C to SNF. Dsg presents wtih shadow drainage, JENN intact. Patient denies numbness or tingling. CMS intact. Saline locked at this time. RA 97%, lungs CTA. Intermittent coughing noted.
== END 2020-08-26 15:37 ==
LOC: OR 14:46 → AC 14:46
PROVIDERS: Admitting Provider Orthopaedic Surgery; PCP Nurse Practitioner; Referring Provider Orthopaedic Surgery; Visit Provider Orthopaedic Surgery
PROC: 0SR90JZ Replacement of Right Hip Joint with Synthetic Substitute, Open Approach (ICD-10-PCS; CPT 27130; principal; 2020-08-24 10:45)
DX: M16.11 Unilateral primary osteoarthritis, right hip (principal); I10 Essential (primary) hypertension; G47.33 Obstructive sleep apnea (adult) (pediatric); F17.210 Nicotine dependence, cigarettes, uncomplicated; K21.9 Gastro-esophageal reflux disease without esophagitis; F41.9 Anxiety disorder, unspecified; F43.10 Post-traumatic stress disorder, unspecified; E66.9 Obesity, unspecified; Z68.36 Body mass index [BMI] 36.0-36.9, adult; Z20.822 Contact with and (suspected) exposure to COVID-19
CPT/HCPCS: 27130; 36415; 72170; 73502; 85014; 85018; 87635; 94640; 97110; 97116; 97162; 97530; C1776; C9803; G0378; C9290; J0171; J0690; J1170; J2250; J2405; J2704; J3010; J7613

== ENCOUNTER → 2020-11-15 14:06 | Outpatient (CLI) | payer OTHER, MEDICAID, SELFPAY ==
[2020-08-24 14:55] VITALS: BMI 36.6
[2020-11-15 15:54] LABS: COVID19 -Nasal RAPID Negative (Negative)
== END ==
PROVIDERS: PCP Nurse Practitioner; Visit Provider Nurse Practitioner
DX: Z20.822 Contact with and (suspected) exposure to COVID-19 (principal)
CPT/HCPCS: 87635; C9803

== ENCOUNTER 2020-11-16 14:51 | Day surgery (SDC) | payer OTHER, MEDICAID, SELFPAY ==
[2020-08-24 14:55] VITALS: BMI 36.6
[2020-11-12 10:08] VITALS: BMI 36.6
[2020-11-16] VITALS (9 sets, daily range): BP systolic 106–138; BP diastolic 64–90; PULSE 61–91; RESP 11–24; TEMP 36.2–36.7; O2SAT 97–99; BMI 36.6
[2020-11-16] MEDS: ACETAMINOPHEN 325 MG TABLET 975 MG PO (15:26)
--- NOTE | 2020-11-16 15:31 | PM.PREOP ---
Pre-operative Note COVID-19 COVID-19 status: Negative Interval Note History & Physical reviewed/Exam performed by Physician: Yes Changes to H&P: No
--- NOTE | 2020-11-16 15:31 | PM.OP.1 ---
Operative Date/Time/Diagnoses Date of procedure: 11/16/20 Time of procedure: 16:10 Pre-op diagnosis: right hip wound history of total hip arthroplasty Post-op diagnosis: same Procedure & Clinicians Procedure: Superficial right hip irrigation and debridement with excisional debridement of small nonhealing wound, aspiration right hip joint Same procedure as scheduled: Yes Indications: This is a patient with a history of a right total hip arthroplasty. She had 2 small scabs on her incision which did not fully heal. Some drainage was noted in physical therapy. She partially responded to oral antibiotics but there was a concern whether she had a deep sinus track she is brought to the operating room for irrigation and debridement is needed and aspiration of her hip joint. Surgeon: Cara Biggs [employer] Officer: Kiran Perez Anesthesia Type: General Operative Notes Findings: Superficial wounds with no deep communication, dissolving retained sutures, clear fluid from deep aspiration Closure Type: primary Specimen(s): other (cultures superficial wound cultures and deep fluid aspiration cultures) Estimated Blood Loss (mL): 10 Blood products transfused: none Procedure in detail: Patient is brought the operating room she underwent induction of a general anesthesia. She was carefully positioned in lateral decubitus position prepped and draped in a standard sterile fashion. We prepped her in case we needed to do open the right hip joint. Time-out was performed. Antibiotics were held pending cultures. She was prepped and draped sterilely. Skin incision was made incorporating a portion of the patient's previous skin excision but excising 2 small puncture wounds which had been previously draining. Dissection was carried out through skin and subcutaneous tissues and an excisional debridement was performed resecting skin and subcutaneous tissues. It was meticulously checked and there was no deep communication. It did appear consistent with a more superficial infection including some skin and subcutaneous tissues. This was meticulously debrided. The wound was then irrigated with 1 L of pulse lavage. Next through a completely separate approach the right hip and trochanteric region was aspirated. I removed about 2 cc of slightly blood-tinged clear fluid. It did not appear to be purulence but was clearly from the deep space. It was sent for stat Gram stain culture and sensitivity. Culture and sensitivity was also sent from the more superficial specimen as a tissue culture. The wound was fair further irrigated with normal saline and closed with interrupted nylon and dressed sterilely. Patient tolerated the procedure well she is transferred recovery room in satisfactory condition. There specifically did not appear to be a sinus relating to her recent hip arthroplasty. Complications: none Post-operative Condition: stable Disposition: same day surgery Plan for aftercare: Weight-bearing as tolerated of the right lower extremity continue with oral antibiotics Bactrim. Return to clinic in 2 weeks for possible suture removal.
[2020-11-16] MEDS: CEFAZOLIN 1 GM VIAL 2 GM IV (16:40)
--- NOTE | 2020-11-16 16:46 | SUR.OPER ---
Lateral on padded OR bed. Gel axillary roll. Arms secured on padded armboard with pillow supporting top arm. Padded hip positioner braces x4 - anterior and posterior chest and pelvis. Additional gel pad used anterior pelvis. Gel pad under bottom leg from knee to foot and secured with tape over sheet.
[2020-11-16] MEDS: BUPIVACAINE 0.5% (PF) VIAL 30 ML INJ (16:50)
[2020-11-16] MEDS: VANCOMYCIN 1,000 MG/200 ML PIGGYBACK 200 MG IV (17:15)
--- NOTE | 2020-11-16 17:29 | SUR.PHASEII ---
assumed care of pt from BOGDAN Sparks. Pt in stable condition on transfer to Phase II
[2020-11-16] MEDS: OXYCODONE IR 5 MG TABLET PO (18:11)
== END 2020-11-16 18:34 | disposition home or self-care (01) ==
LOC: OR 14:54 → AC 14:57
PROVIDERS: PCP Nurse Practitioner; Referring Provider Nurse Practitioner; Visit Provider Orthopaedic Surgery
PROC: 0J9C3ZZ Drainage of Pelvic Region Subcutaneous Tissue and Fascia, Percutaneous Approach (ICD-10-PCS; CPT 10180; principal; 2020-11-16 13:45)
DX: T81.41XA Infection following a procedure, superficial incisional surgical site, initial encounter (principal); B95.61 Methicillin susceptible Staphylococcus aureus infection as the cause of diseases classified elsewhere; Z96.641 Presence of right artificial hip joint; F17.210 Nicotine dependence, cigarettes, uncomplicated; J44.9 Chronic obstructive pulmonary disease, unspecified; I10 Essential (primary) hypertension; E66.9 Obesity, unspecified
CPT/HCPCS: 11042; 20610; 87070; 87075; 87077; 87147; 87176; 87186; 87205; J0690; J1100; J2405; J2704; J3010